=== PATIENT | male | born 2000 | race Caucasian/White ===

== ENCOUNTER 2021-02-20 10:32 | Emergency (ER) | payer OTHER ==
[~2021-02-20] VITALS: Ht 180.3 cm; Wt 90.0 kg
--- NOTE | 2021-02-20 11:11 | REP ---
INDICATION: trauma. COMPARISON: None. TECHNIQUE: Four views of the right ankle. FINDINGS: Four views of the right ankle demonstrate intact ankle mortise. There is anterolateral soft tissue swelling about the ankle joint. There is a distal fibular bone island. No fracture or subluxation is seen. IMPRESSION: No fracture noted. Soft tissue swelling. <Electronically signed by Agapito Hazel > 02/20/21 [id number]
[2021-02-20 13:11] VITALS: BP 131/72
== END 2021-02-20 13:34 | disposition home or self-care (01) ==
LOC: M ED 10:32
DX: S93.401A Sprain of unspecified ligament of right ankle, initial encounter (principal); X50.0XXA Overexertion from strenuous movement or load, initial encounter; Y92.9 Unspecified place or not applicable; Y93.9 Activity, unspecified; Y99.1 Military activity; F17.200 Nicotine dependence, unspecified, uncomplicated

== ENCOUNTER 2021-07-09 15:52 | Emergency (ER) | payer OTHER ==
[~2021-07-09] VITALS: Ht 180.3 cm; Wt 90.4 kg
[2021-07-09] MEDS ORDERED: ACETAMINOPHEN 325 MG TAB PO ONE (17:10)
[2021-07-09 17:55] VITALS: BP 137/74
== END 2021-07-09 18:00 | disposition home or self-care (01) ==
LOC: M ED 15:52
DX: S52.612A Displaced fracture of left ulna styloid process, initial encounter for closed fracture (principal); F17.200 Nicotine dependence, unspecified, uncomplicated; V00.311A Fall from snowboard, initial encounter; Y92.9 Unspecified place or not applicable; Y93.23 Activity, snow (alpine) (downhill) skiing, snowboarding, sledding, tobogganing and snow tubing; Y99.9 Unspecified external cause status